=== PATIENT | male | born 1945 | race Caucasian/White ===

== ENCOUNTER 2017-02-12 13:00 | Outpatient (RCR) | payer OTHER ==
[~2017-02-12 13:00] MED LIST: NKM
== END 2017-02-17 | disposition home or self-care (01) ==
LOC: PTY 13:00
DX: G20 Parkinson's disease (principal); M40.00 Postural kyphosis, site unspecified

== ENCOUNTER 2017-04-10 11:00 | Outpatient (RCR) | payer OTHER | END 2017-04-19 | disposition home or self-care (01) | LOC: PTY 11:00 | DX: G20 Parkinson's disease (principal); M40.00 Postural kyphosis, site unspecified; M54.5 Low back pain ==